=== PATIENT | female | born 1980 ===

== ENCOUNTER 2017-08-11 19:42 | Emergency (ER) | payer OTHER, MEDICAID ==
[2017-08-11 19:54] VITALS: TEMP 99
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
[2017-08-11] MEDS ORDERED: Oxycodone/Acetaminophen 5/325 mg Tab PO STA (20:29)
[2017-08-11 22:03] VITALS: BP 145/92; PULSE 82; RESP 16; O2SAT 99
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
== END 2017-08-11 23:30 | disposition home or self-care (01) ==
LOC: ED 19:42
DX: R51 Headache (principal); M54.2 Cervicalgia; M54.5 Low back pain; I10 Essential (primary) hypertension; V49.59XA Passenger injured in collision with other motor vehicles in traffic accident, initial encounter; Y92.410 Unspecified street and highway as the place of occurrence of the external cause; E11.9 Type 2 diabetes mellitus without complications